=== PATIENT | female | born 1965 | race Caucasian/White ===

== ENCOUNTER 2017-06-16 20:53 | Observation (INO) | payer OTHER ==
[~2017-06-16] VITALS: Ht 160 cm; Wt 81.7 kg
[~2017-06-16 20:53] MED LIST: ESCI10 PO; ESTR2; HYDACE5 PO; IBUP800 PO; OXYB5; PROG100; PROM25 PO; Prilosec Otc20 MG; Proctosol HC30 GM; TRIA80TC; VENL75ER
[2017-06-16 21:50] LABS: Source, Urine Clean Catch
[2017-06-16 21:52] LABS: BASOPHILS ABSOLUTE AUTO 0.05 K/mm3 (0.00-0.23); BASOPHILS PERCENT AUTO 1 % (0-2); EOSINOPHILS ABSOLUTE AUTO 0.34 K/mm3 (0.00-0.68); EOSINOPHILS PERCENT AUTO 5 % (0-6); Hematocrit 44.6 % (33.0-51.0); Hemoglobin 15.6 g/dL (11.5-16.0); IMMATURE GRAN ABSOLUTE AUTO 0.01 K/mm3 (0.00-0.10); IMMATURE GRAN PERCENT AUTO 0 % (0-1); LYMPHOCYTES ABSOLUTE AUTO 2.92 K/mm3 (0.84-5.20); LYMPHOCYTES PERCENT AUTO 39 % (21-46); MONOCYTES ABSOLUTE AUTO 0.36 K/mm3 (0.16-1.47); MONOCYTES PERCENT AUTO 5 % (4-13); Mean Corpuscular HGB 32.5 pg (26.0-34.0); Mean Corpuscular Volume 93 fL (80-100); NEUTROPHILS PERCENT AUTO 52 % (41-73); RDW Coefficient Variation 12.2 % (11.7-14.2); RDW Standard Deviation 42.3 fL (35.1-46.3); White Blood Cell Count 7.58 K/mm3 (4.00-11.30)
[2017-06-16 21:53] LABS: Bilirubin, Urine Neg (Neg); Blood, Urine Neg (Neg); Glucose Qualitative, Urine Neg (Neg); Ketones, Urine Neg (Neg); Leukocyte Esterase, Urine Neg (Neg); Nitrite, Urine Neg (Neg); Protein, Urine Neg (Neg); Urobilinogen, Urine NORM (Normal)
[2017-06-16 21:54] LABS: Mean Platelet Volume 10.3 fL (9.1-12.4); Platelet Count 197 K/mm3 (150-400)
[2017-06-16 22:11] LABS: U Amphetamine Screen Not Detected; U Barbituate Screen Not Detected; U Benzodiazapine Screen Not Detected; U Buprenorphine Screen Not Detected; U Cannabinoids Screen Not Detected; U Cocaine Screen Not Detected; U Methadone Screen Not Detected; U Methamphetamine Screen Not Detected; U Opiates Screen Not Detected; U Oxycodone Screen Not Detected; U Phencyclidine Screen Not Detected; U Propoxyphene Screen Not Detected
[2017-06-16 22:13] LABS: Appearance, Urine Clear (Clear); Color, Urine Yellow (P-Yellow)
[2017-06-16 22:14] LABS: Alanine Aminotransfer (ALT/SGP 32 U/L (12-78); Albumin, Blood 4.1 g/dL (3.4-5.0); Albumin/Globulin Ratio 1.3 (0.8-1.8); Alk Phos 63 U/L (50-136); Anion Gap 10 mmol/L (6-16); Aspartate Aminotrans (AST/SGOT 19 U/L (12-37); Bilirubin, Total 0.3 mg/dL (0.1-1.0); Blood Urea Nitrogen 11 mg/dL (8-24); Bun/Creatinine Ratio 23.1 (12.0-20.0); CO2, Blood 27 mmol/L (21-32); Calcium, Blood 9.1 mg/dL (8.5-10.1); Chloride, Blood 108 mmol/L (98-108); Creatinine, Blood 0.48 mg/dL (0.40-1.00); Ethanol (Alcohol), Blood, Med 210 mg/dL; Globulin, Blood 3.2 g/dL (2.2-4.0); Glomerular Filtration Rate >60 (60-); Glucose, Blood 99 mg/dL (70-99); Potassium, Blood 3.9 mmol/L (3.5-5.5); Salicylate 2.9 mg/dL (2.8-20.0); Sodium, Blood 145 mmol/L (136-145); Thyroxine (T4) 14.7 ug/dL (4.8-13.9); Total Protein, Blood 7.3 g/dL (6.4-8.2)
[2017-06-16 22:30] LABS: Acetaminophen, Random <2.0 ug/mL (10.0-30.0)
== END 2017-06-17 15:17 | disposition home or self-care (01) ==
LOC: ER 20:53 → EOR 20:54
PROVIDERS: Emergency Medicine
DX: R45.851 Suicidal ideations (principal); F32.9 Major depressive disorder, single episode, unspecified; F17.200 Nicotine dependence, unspecified, uncomplicated; F10.129 Alcohol abuse with intoxication, unspecified; Z90.49 Acquired absence of other specified parts of digestive tract; Z98.890 Other specified postprocedural states; Y90.7 Blood alcohol level of 200-239 mg/100 ml
CPT/HCPCS: 80053; 81003; 81025; 84436; 84443; 85025; 99285; G0378; G0480

== ENCOUNTER → 2019-04-04 | Outpatient (CLI) | payer OTHER ==
[~2019-04-04] MED LIST changes: +Percocet 5-3251 EACH PO; +Robaxin-750750 MG PO
[2019-04-07 15:06] LABS: HPV 16 Negative (Negative); HPV 18 Negative (Negative); HPV OTHER HR TYPES Negative (Negative)
== END | disposition home or self-care (01) ==
LOC: LAB 12:43 → LAB SHORT 12:43
PROVIDERS: Nurse Practitioner Women's Health
DX: Z12.4 Encounter for screening for malignant neoplasm of cervix (principal)
CPT/HCPCS: 87624; G0123

== ENCOUNTER 2019-05-16 09:41 | Emergency (ER) | payer OTHER ==
[~2019-05-16] VITALS: Ht 162.6 cm; Wt 90.7 kg
[~2019-05-16 09:41] MED LIST changes: -Percocet 5-3251 EACH PO; -Robaxin-750750 MG PO
[2019-05-16] MEDS ORDERED: Percocet 5-3251 EACH PO (11:24)
[2019-05-16] MEDS ORDERED: Robaxin-750750 MG PO (11:31)
== END 2019-05-16 11:35 | disposition home or self-care (01) ==
LOC: ER 09:41
DX: M25.511 Pain in right shoulder (principal); K21.9 Gastro-esophageal reflux disease without esophagitis; F17.200 Nicotine dependence, unspecified, uncomplicated; Z79.899 Other long term (current) drug therapy
CPT/HCPCS: 73030; 99283-25; J3301

== ENCOUNTER → 2019-05-19 | Outpatient (CLI) | payer OTHER ==
[~2019-05-19] MED LIST changes: +Percocet 5-3251 EACH PO; +Robaxin-750750 MG PO
== END | disposition home or self-care (01) ==
LOC: LAB 11:46 → LAB SHORT 11:46
DX: M25.511 Pain in right shoulder (principal)
CPT/HCPCS: 87070; 87075; 87205

== ENCOUNTER 2020-11-01 06:11 | Day surgery (SDC) | payer OTHER ==
[~2020-11-01] VITALS: Ht 160 cm; Wt 88.0 kg
--- NOTE | 2020-11-01 07:05 | NUR ---
11/01/20 0705 PARISA REEDER ON BLE
--- NOTE | 2020-11-01 09:15 | NUR ---
11/01/20 0915 Yazmin WebbS THROUGHOUT STEP DOWN STAY. MONITOR DID NOT RECORD BP.
== END 2020-11-01 09:06 | disposition home or self-care (01) ==
LOC: ORSCSDS 06:11
PROVIDERS: Obstetrics & Gynecology
PROC: 0UDB8ZX Extraction of Endometrium, Via Natural or Artificial Opening Endoscopic, Diagnostic (ICD-10-PCS; principal; 2020-11-01 07:30)
DX: N95.0 Postmenopausal bleeding (principal); Z87.891 Personal history of nicotine dependence; K21.9 Gastro-esophageal reflux disease without esophagitis; Z79.899 Other long term (current) drug therapy; E66.9 Obesity, unspecified; Z68.34 Body mass index [BMI] 34.0-34.9, adult
CPT/HCPCS: 88305; J0690; J1100; J1885; J2250; J2405; J2704; J3010; J7120

== ENCOUNTER 2021-07-17 11:23 | Emergency (ER) | payer OTHER ==
[~2021-07-17] VITALS: Ht 160 cm; Wt 88.5 kg
[2021-07-17] MEDS ORDERED: METPRE4DP PO (12:52)
== END 2021-07-17 13:03 | disposition home or self-care (01) ==
LOC: ER 11:23
DX: M25.512 Pain in left shoulder (principal); K21.9 Gastro-esophageal reflux disease without esophagitis; Z79.899 Other long term (current) drug therapy
CPT/HCPCS: 73030; 99283-25